=== PATIENT | female | born 1945 | race Caucasian/White ===

== ENCOUNTER 2021-07-09 14:50 | Outpatient (RCR) | payer MEDICARE, OTHER, SELFPAY ==
[2021-07-09 15:10] VITALS: BP 124/60; PULSE 75
--- NOTE | 2021-08-27 14:41 | MHC.PT.DC ---
[facility] [place] Office [place] [facility] [place] Office [address] Alondra Worthy 140 [facility] [phone] F: [phone] F: [phone] F: [phone] F: [phone] Physical Therapy Discharge Report Diagnosis: Vestibular rehab Date of Surgery: Date of Evaluation: 07/09/21 Date of Discharge: 08/27/21 Treatments to Date: 1 Cancellations to Date: 0 No Shows to Date: 0 Discharge Status: Patient Elected to Stop Discharge Summary: Apple did not present with any symptoms of vestibular dysfunction however presented with balance deficits. Due to this she was recommended PT. However due to personal and family issues pt did not make any PT appointment. She was therefore d/c from PT. Electronically signed by: Carine Martinez PT DPT Please sign and return to therapist. Thank you for your referral.
== END 2021-08-27 14:41 | disposition home or self-care (01) ==
LOC: HO.PT 14:50
PROVIDERS: PCP Internal Medicine; Visit Provider Otolaryngology
DX: R42 Dizziness and giddiness (principal)
CPT/HCPCS: 97112; 97161

== ENCOUNTER 2022-04-30 13:00 | Outpatient (RCR) | payer MEDICARE, OTHER, SELFPAY ==
[2022-04-10 11:01] VITALS: BP 105/60; PULSE 87; O2SAT 99
== END 2022-05-18 12:41 | disposition home or self-care (01) ==
LOC: HO.PTWFD 13:00
PROVIDERS: PCP Internal Medicine; Visit Provider Otolaryngology
DX: H81.10 Benign paroxysmal vertigo, unspecified ear (principal)
CPT/HCPCS: 95992; 97110; 97163